=== PATIENT | female | born 1960 | race Caucasian/White ===

== ENCOUNTER 2017-01-11 18:35 | Emergency (ER) | payer OTHER ==
[2017-01-11] MEDS ORDERED: Sodium Chloride 0.9% 10 ML Syringe FLUSH PRN (18:44)
[2017-01-11] MEDS ORDERED: hydrALAZINE 20 MG/ML SDV IVPUSH ONE (18:44)
[2017-01-11] MEDS ORDERED: Oxymetazoline 0.05% Nasal Spray 15 ML Bottle NAS ONE (18:47)
[2017-01-11] MEDS ORDERED: Lidocaine 1% 30 ML SDV INJECT ONE (18:57)
[2017-01-11 19:31] LABS: CHLORIDE,CL 106 mmol/L (98-107); SODIUM,NA 144 mmol/L (136-145)
[2017-01-11] MEDS ORDERED: Lisinopril 10 MG Tab PO ONE (20:08)
[2017-01-11 20:12] VITALS: BP 146/91
[2017-01-11] MEDS ORDERED: Take Home: Acetaminophen/HYDROcodone 325-5 MG, 5 Tab Pack PO ONE (20:20)
--- NOTE | 2017-01-19 08:57 | ER ---
Date of Service: 01/11/2017 SUBJECTIVE: Joan presents to the emergency room with complaints of epistaxis from both nares. She states that she has not experienced epistaxis like this in the past. She states that she has been checking her blood pressure at home and has been extremely elevated. She currently is not taking any antihypertensive agents, but states that she had previously been on an unknown antihypertensive medication. The patient denies any recent head or facial trauma. PAST MEDICAL HISTORY: Hypertension. MEDICATIONS: None. ALLERGIES: Sulfa. REVIEW OF SYSTEMS: General: No fever or chills. HEENT: No sore throat, rhinorrhea or congestion. Respiratory: No shortness of breath. Cardiac: Denies any substernal chest pain. No jaw, arm, neck, or back pain. GI: No nausea, vomiting, or diarrhea. No melena, hematochezia, or hematemesis. : Denies any dysuria. Musculoskeletal: No myalgias or arthralgias. NEUROLOGIC: No fainting, blackouts, or lightheadedness. PHYSICAL EXAMINATION: General: This is a 56-year-old female patient, in no acute distress. Vital signs: Initial blood pressure was 203/123, heart rate was 102, respiratory rate was 18, and O2 saturations 97%. Skin: Warm, pink, and dry. HEENT: Head is normocephalic. Eyes, PERRLA. Extraocular movements are intact. Nose, she does have brisk epistaxis from both nares. Ears, TMs are clear. Mouth, oral mucosa is moist. Lungs: Clear to auscultation. Heart: Regular rate and rhythm. Abdomen: Soft, nontender. There is no hepatosplenomegaly or masses noted. LABORATORY DATA: WBC is 7.9, hemoglobin is 15.0, platelets are 169. PT is 10.3, INR is 0.9. Chemistry, sodium is 144, potassium is 3.7, chloride is 106, bicarb is 26, BUN is 12, creatinine is 0.6. GFR is greater than 60. Glucose is 111, calcium is 9.1, corrected calcium is 8.86, total bilirubin is 0.4, AST is 17, ALT is 26, alkaline phosphatase is 65, total protein is 7.7, and albumin is 4.3. EMERGENCY ROOM COURSE: IV access was established. The patient was given 10 mg of hydralazine IV. DIAGNOSTIC DATA: A 12-lead EKG was obtained. Oxymetazoline nasal spray was instilled in both nares. Along with this approximately 4 mL of 1% lidocaine was instilled in the left naris with an atomizer. A 7.5 cm anterior posterior pneumatic nasal packing was placed in the left naris and the epistaxis resolved. The patient tolerated this relatively well and remained stable in my care in the emergency room. ASSESSMENT: 1. Hypertensive emergency. 2. Epistaxis secondary to hypertensive emergency. PLAN: The patient was also given lisinopril 10 mg p.o. here in the emergency room. I did start her on a course of lisinopril for home to take until she can get in to the clinic and see her primary care provider. I also did start her on Lortab 5/325 due to the nasal packing. I would like her to follow up in the clinic in the next 24 to 48 hours. She will need to have the nasal packing removed. All questions were answered. QUETAK: 01/18/2017 22:52:08 MODL: 01/19/2017 02:16:12 /[id number]
== END 2017-01-11 20:30 | disposition home or self-care (01) ==
LOC: VM.ED 18:35
DX: I16.0 Hypertensive urgency (principal); R04.0 Epistaxis
CPT/HCPCS: 30905; 36415; 80053; 85025; 85610; 93005; 96374; 99284; A9270; J0360